=== PATIENT | female | born 2000 ===

== ENCOUNTER 2023-12-03 10:46 | Emergency (ER) | payer OTHER ==
[~2023-12-03] VITALS: Ht 165.1 cm; Wt 56.7 kg
== END 2023-12-03 17:39 | disposition short-term general hospital (02) ==
LOC: EDH 10:46
DX: R45.851 Suicidal ideations (principal); Z53.21 Procedure and treatment not carried out due to patient leaving prior to being seen by health care provider
CPT/HCPCS: 99281